=== PATIENT | female | born 1985 | race Caucasian/White ===

== ENCOUNTER 2023-02-12 09:32 | Emergency (ER) | payer OTHER ==
[~2023-02-12] VITALS: Ht 154.9 cm; Wt 68.0 kg
[2023-02-12] MEDS ORDERED: CYCLOBENZAPRINE10 MG PO (11:43)
[2023-02-12] MEDS ORDERED: DICLOFENAC POTA50 MG PO (11:43)
== END 2023-02-12 11:56 ==
LOC: ER 09:32
DX: M54.41 Lumbago with sciatica, right side (principal)